=== PATIENT | female | born 1995 | race Hispanic/Latino ===

== ENCOUNTER 2018-11-30 11:18 | Inpatient (IN) | payer OTHER ==
[~2018-11-30] VITALS: Ht 152.4 cm; Wt 55.0 kg
[2018-11-30 11:54] LABS: HEMATOCRIT 41.1 % (36.0-47.0); MEAN CORPUSCULAR HEMOGLOBIN 30.7 pg (27.0-33.0); MEAN CORPUSCULAR HGB CONC 34.1 g/dl (32.0-36.5); MEAN CORPUSCULAR VOLUME 90.1 fl (80.0-96.0); PLATELET COUNT, AUTOMATED 315 10^3/uL (150-450); RED BLOOD COUNT 4.56 10^6/uL (4.00-5.40); WHITE BLOOD COUNT 10.3 10^3/uL (4.0-10.0)
[2018-11-30 12:25] LABS: HCG, SERUM QUALITATIVE NEGATIVE (NEGATIVE)
[2018-11-30 12:29] LABS: ACETAMINOPHEN LEVEL < 2.0 UG/ML (10.0-30.0); ALT/SGPT 25 U/L (12-78); AMPHETAMINES LEVEL URINE NEGATIVE (NEGATIVE); BARBITURATES URINE NEGATIVE (NEGATIVE); BENZODIAZEPINES URINE NEGATIVE (NEGATIVE); BILIRUBIN,DIRECT 0.2 MG/DL (0.0-0.2); BILIRUBIN,TOTAL 0.9 MG/DL (0.2-1.0); BLOOD UREA NITROGEN 16 MG/DL (7-18); CALCIUM LEVEL 8.3 MG/DL (8.5-10.1); CANNABINOIDS URINE NEGATIVE (NEGATIVE); CARBON DIOXIDE LEVEL 29 MEQ/L (21-32); CHLORIDE LEVEL 107 MEQ/L (98-107); COCAINE METABOLITE URINE NEGATIVE (NEGATIVE); CREATININE FOR GFR 0.72 MG/DL (0.55-1.30); ETHYL ALCOHOL (ETHANOL) 0.004 % (0.000-0.010); GLOMERULAR FILTRATION RATE > 60.0 (>60); GLUCOSE, FASTING 94 MG/DL (70-100); METHADONE URINE NEGATIVE (NEGATIVE); OPIATES URINE NEGATIVE (NEGATIVE); PHENCYCLIDINE URINE NEGATIVE (NEGATIVE); POTASSIUM SERUM 3.7 MEQ/L (3.5-5.1); SALICYLATE LEVEL < 1.7 MG/DL (5.0-30.0); SODIUM LEVEL 142 MEQ/L (136-145); THYROID STIMULATING HORMONE 0.425 uIU/ML (0.358-3.740); TOTAL PROTEIN 7.3 GM/DL (6.4-8.2)
[2018-11-30] MEDS ORDERED: NEXP1IMP SC (12:35)
[2018-11-30] MEDS ORDERED: traZODone 50 MG TAB PO PRN (13:45)
[2018-11-30] MEDS ORDERED: MAALOX 30 ML SUSP *UDC PO PRN (13:45)
[2018-11-30] MEDS ORDERED: ACETAMINOPHEN TAB 650MG DOSE (2X325MG) PO PRN (13:45)
[2018-11-30] MEDS ORDERED: MOM 30ML SUSPENSION UDC PO PRN (13:45)
[2018-11-30 15:48] VITALS: BP 114/69
[2018-12-01 06:15] VITALS: BP 93/53
--- NOTE | 2018-12-01 15:04 | MHHPEPDOC ---
General Date Of Admission: Dec 01, 2018 Legal Status: 9.39 Chief Complaint Overwhelmed, suicidal ideation History of Present Illness HISTORY OF THE PRESENT ILLNESS: Patient is a 23 -year-old , female, who according to Ed report: "Pt presented to ED via Escort after a walkin apt to [facility]. Pt reported +SI gesture this morning by cutting wrist. Pt stated, after writing good bye letters to her family members last monday, made another +SI gestuure by cutting the other wrist. Pt minimizes her behavior. "I g et overwhelmed" ; I miss my mom, relationship issues, work, trying to get promoted, etc., "I didn't want to deal with anything anymore". "sometimes, I get overwhelmed so fast, i go to my car and cry". Pt denies hx of cutting, reported "just started Monday". "I think noone cares if I'm not here". "Yes, they will be sad, but will get over it". "I am leaving them my money so they will be taken care, of". Pt stated +SI when she does not feel in control of everything. 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 Pt reported 1 previous SI attempt by overdose while stationed in [place]. Pt stated +SI attempts in past but never told anyone., would not elaborate". Psychiatric Review of Systems Depression (2 or more weeks): depressed mood (on and off), insomnia/hypersomnia (she wakes up at 2 am and she can't go back to sleep.), feelings of excess/guilt, feelings of worthlesness (she says that there's some things she doesn't like about herself, for example she would like to get braces but she hasn't been able to because she is in the [employer]. she says she had surgery for lazy eye but she still feels that people look at her because of it), difficulty concentrating (When she reads), appetite changes (she eats when she can, because sometimes she doesn't have the time. she says when she is depressed, she eats less and when she is anxious, she eats more), suicidal thoughts (but she says she is not suicidal today) [place] (4 or more days of): denies Psychosis: denies PTSD: denies Anxiety: stressor related anxiety (romantic relationships thag go wrong or sour trigger her anxiety), panic attacks Anxiety/ 6 months or more of: difficulty concentrating (when she reads), irritability (whe she doesn't get enough sleep), muscle tension Past Psychiatric History Previous Psychiatric Diagnosis: Anxiety and depression Previous Psychiatric Admissions: Denies. Suicide Attempts: When she was stationed in [place] she took 3 pills to go to sleep and even when she explained the Doctor that she was not trying to kill herself, she was just trying to go to sleep, they didn't believe her and they had her under observation, she was hooked to a Holter monitor, she had IV fluids for one night Psychiatric Follow-up: [facility] Psychiatric medications: Denies Past Medical History Medical Problems Denies Head Injury: No Seizures: No Hospitalizations: Yes Surgeries: Yes (eye surgery) Family Medical/Psychiatric HX Medical Problems Her father is hypertensive, has heart problems and is diabetic. Her mother has RA. Her paternal grandmother had diabetes and her paternal grandfather had a heart attack Psychiatric Disorders: No Addiction: No Suicide Attemps/Completions: No Addiction History alcohol (for her Birthday) Social History Childhood: she was born and raised in [place]. she grew up with his parents and then, her mother came to live to the [facility], she stayed with her father. then, she came to the [facility], her parents were , she didn't know how to speak [place], she was bullied in school. her mother became and she took care of her mother's child (her half siblings). She joined the [employer], mostly to run away from home because she was overwhelmed doing her homework, helping with house chores, had to take care of the baby. She has two other brothers. The oldest one is from a different father and so is the youngest one. The one that is 20 years old is the full blooded brother that she thinks was spoled by her mother. Abuse/Trauma: Denies Current Living Situation: Lives on post Education: HS diploma, wants to continue her education Employment: Active duty soldier Social Support: Her boyfriend and one friend in the [employer] Legal: Denies Marital: single, no children Mental Status Examination General Appearance: well groomed, hospital scubs/clothing Build: average Demeanor: average Eye Contact: average Activity: average Behavior: cooperative Speech: clear, spontaneous, reg/rate,rhythm,volume Mood: euthymic Affect: full, appropriate, congruent Thought Process: logical/linear Thought Content (Delusions): none reported Thought Content (Other): none reported Thought Content (Aggressive): none reported Perception (Hallucinations): none reported Perception (Other): none reported Cognition (Impairment of): none reported Cognition(Intelligence Est.): average Oriented: Awake, Alert, Oriented times three Insight: fair Judgment: Fair Psychosis: Denies Diagnoses 1. Adjustment disorder with depressed/anxious mood 2. MAURA Assessment Patient is pleasant and cooperative, she seems to be stable at this time. she has felt overwhelmed and she had problems with her boyfriend, her father was sick in [place], she misses her family. She has had trouble eating but it is because usually she doesn't have the time to eat because she is too busy, she says she has difficulty concentrating but it is limited to reading. She doesn't wnt to take any medications and I don't think she is depressed, I think she has an Adjustment Disorder Initial Treatment Plan 1. Patient was admitted on a [9.39] status. 2. Complete history was obtained. 3. With patients permission, family will be contacted and database will be expanded. 4. Patients medication regimen will be reviewed and changed accordingly. 5. Patient will be provided with protected environment. 6. Patient will be treated with individual, group, and milieu therapies. 7. Patient will receive supportive psych-education. 8. Discharge planning will commence immediately. 9. Outpatient follow-up treatment will be strongly recommended. 10. The initial treatment plan will focus initially on: * Depression. * Risk for suicide. * Substance abuse. ESTIMATED LENGTH OF STAY: 5-7 DAYS. TIME SPENT COUNSELING AND COORDINATING INITIAL CARE: 60 minutes. Vital Signs Vital Signs Date Time Temp Pulse Resp B/P (MAP) Pulse Ox O2 Delivery O2 Flow Rate FiO2 12/01/18 06:15 99.1 65 12 93/53 (66) 11/30/18 15:48 98 11/30/18 11:24 Room Air Medications Scheduled Etonogestrel (Nexplanon) 68 Mg Imp, 68 MG SC ASDIRECTED, (Reported) Allergies Coded Allergies: No Known Allergies (Unverified , 11/30/18) ROLLY TERRAZAS MD Dec 01, 2018 14:54
[2018-12-01 18:13] VITALS: BP 112/66
[2018-12-02 06:11] VITALS: BP 97/57
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
[2018-12-02 18:14] VITALS: BP 158/65
[2018-12-03 06:00] VITALS: BP 102/58
--- NOTE | 2018-12-03 13:26 | HPE ---
DATE OF ADMISSION: 11/30/2018 HISTORY OF PRESENT ILLNESS: Please refer to psychiatric history and evaluation for further details on this admission. This examination and history is intended for medical issues, which may need treatment, followup, or consult on this 23-year-old female. ALLERGIES: No known allergies. PRIMARY CARE PROVIDER: [facility]. 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 Ethyl alcohol (EtOH) on a special occasion, like a birthday. Smokes none. Recreational drug use none. PAST MEDICAL HISTORY: History of anxiety and depression. PAST SURGICAL HISTORY: Bilateral correction of lazy eye. MEDICATIONS: None. FAMILY HISTORY: Noncontributory. LABORATORY STUDIES: WBC 10.3, hemoglobin 14, hematocrit 41.1, platelets 315. Sodium 142, potassium 3.7, chloride 107, CO2 21, BUN is 16, creatinine 0.72. Urine for toxicology was negative. FAMILY HISTORY: Noncontributory. Ten systems review was done. Was essentially unremarkable. PHYSICAL EXAMINATION: A 23-year-old cooperative female, in no acute distress. Height 60 inches, weight 55 kg, body mass index (BMI) 23.7. The patient is alert and oriented times three. Pupils are equal and react to light. Extraocular movements (EOMs) intact. Cornea and sclerae clear. Conjunctivae normal. No facial asymmetry. Pharynx, tongue, gums pink and moist. Tongue is midline. NECK: Is supple without lymphadenopathy. No thyromegaly. No goiter. CHEST: Clear to auscultation without wheeze or retraction. HEART: Is regular. ABDOMEN: Is benign. Bowel sounds positive. GENITOURINARY ()/RECTAL: Not done. EXTREMITIES: Show equal strength, full range of motion. No cyanosis, clubbing, or edema. Peripheral pulses equal and palpable bilaterally. SKIN: Is warm and dry. IMPRESSION AND PLAN: 1. Psychiatric plan per psychiatry. 2. No acute medical issues.
--- NOTE | 2018-12-03 16:51 | MHIPNPDOC ---
[facility] Progress Note Progress Note DATE OF SERVICE: 12/03/18 HISTORY: Patient is a 23 -year-old , female, who according to Ed report: "Pt presented to ED via Escort after a walkin apt to [facility] . Pt reported +SI gesture this morning by cutting wrist. Pt stated, after writing good bye letters to her family members last monday, made another +SI gestuure by cutting the other wrist. Pt minimizes her behavior. "I get overwhelmed" ; I miss my mom, relationship issues, work, trying to get promoted, etc., "I didn't want to deal with anything anymore". "sometimes, I get overwhelmed so fast, i go to my car and cry". Pt denies hx of cutting, reported "just started Monday". "I think noone cares if I'm not here". "Yes, they will be sad, but will get over it". "I am leaving them my money so they will be taken care, of". Pt stated +SI when she does not feel in control of everything. 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 Pt reported 1 previous SI attempt by overdose while stationed in [place]. Pt stated +SI attempts in past but never told anyone., would not elaborate". VITAL SIGNS: See below. NEW TEST RESULTS: See below CURRENT MEDICATIONS: See below. MENTAL STATUS EXAMINATION: General Appearance: well groomed, hospital scubs/clothing Build: average Demeanor: average Eye Contact: average Activity: average Behavior: cooperative Speech: clear, spontaneous, reg/rate,rhythm,volume Mood: euthymic, happy today Affect: full, appropriate, congruent Thought Process: logical/linear Thought Content (Delusions): none reported Thought Content (Other): none reported Thought Content (Aggressive): none reported Perception (Hallucinations): none reported Perception (Other): none reported Cognition (Impairment of): none reported Cognition(Intelligence Est.): average Oriented: Awake, Alert, Oriented times three Insight: improving Judgment: improving Psychosis: Denies Diagnoses 1. Adjustment disorder with depressed/anxious mood 2. MAURA ASSESSMENT: She talks about the way she approaches her relationships, her friendships, her family life. We had a conversation about the way she has sabotaged her relationships. She says last night she took Trazodone for sleep but this morning she has felt very tired. she is ready to leave, she will be leaving tomorrow. MANAGEMENT PLAN: Discharge tomorrow. TIME SPENT: 15 minutes. Vital Signs Vital Signs Date Time Temp Pulse Resp B/P (MAP) Pulse Ox O2 Delivery O2 Flow Rate FiO2 12/03/18 06:00 98.2 57 16 102/58 (73) 98 11/30/18 11:24 Room Air Current Medications Current Medications Acetaminophen (Tylenol Tab) 650 mg Q6HP PRN PO HEADACHE or DISCOMFORT; Start 11/30/18 at 13:45 Al Hydrox/Mg Hydrox/Simethicone (Mylanta) 30 ml Q4HP PRN PO HEARTBURN/INDIGESTION; Start 11/30/18 at 13:45 Home Med (Med Rec Complete!) ASDIRECTED XX ; Start 11/30/18 at 12:45; Stop 11/30/18 at 12:45; Status DC Magnesium Hydroxide (Milk Of Magnesia) 30 ml DAILYPRN PRN PO CONSTIPATION; Start 11/30/18 at 13:45 Trazodone HCl (Desyrel) 50 mg QHSP PRN PO INSOMNIA Last administered on 12/02/18at 21:02; Start 11/30/18 at 13:45 Allergies Coded Allergies: No Known Allergies (Unverified , 11/30/18) ROLLY TERRAZAS MD Dec 03, 2018 13:00
[2018-12-03 18:00] VITALS: BP 118/56
[2018-12-04 06:34] VITALS: BP 101/62
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
== END 2018-12-04 13:56 | disposition home or self-care (01) | DRG 882 ==
LOC: M ED 11:18 → M ED INP 13:34 → M PSY 15:40
PROVIDERS: ADMIT Psychiatry & Neurology Psychiatry; ATTEND Psychiatry & Neurology Psychiatry
DX: F43.23 Adjustment disorder with mixed anxiety and depressed mood (principal); F41.1 Generalized anxiety disorder; Z62.811 Personal history of psychological abuse in childhood

== ENCOUNTER 2019-01-23 12:09 | Inpatient (IN) | payer OTHER ==
[~2019-01-23] VITALS: Ht 152.4 cm; Wt 56.6 kg
[~2019-01-23 12:09] MED LIST: NEXP1IMP SC
[2019-01-23 12:39] LABS: BASO # 0.1 10^3/uL (0.0-0.2); BASO % 0.5 % (0.0-1.0); EOS # 0.3 10^3/uL (0.0-0.50); EOS % 2.7 % (0.0-3.0); HEMATOCRIT 40.5 % (36.0-47.0); HEMOGLOBIN 13.9 g/dl (12.0-15.5); LYMPH # 1.8 10^3/uL (1.5-6.5); MEAN CORPUSCULAR HEMOGLOBIN 30.7 pg (27.0-33.0); MEAN CORPUSCULAR HGB CONC 34.3 g/dl (32.0-36.5); MEAN CORPUSCULAR VOLUME 89.4 fl (80.0-96.0); MONO # 0.4 10^3/uL (0.0-0.8); MONO % 4.2 % (0.0-5.0); NEUTROPHILS # 6.9 10^3/uL (1.8-7.7); NEUTROPHILS % 73.3 % (36.0-66.0); PLATELET COUNT, AUTOMATED 312 10^3/uL (150-450); RED BLOOD COUNT 4.53 10^6/uL (4.00-5.40); WHITE BLOOD COUNT 9.4 10^3/uL (4.0-10.0)
[2019-01-23] MEDS ORDERED: NS 1,000 ML IV ONE ×2 (12:45→15:00)
[2019-01-23 13:02] LABS: HCG, SERUM QUALITATIVE NEGATIVE (NEGATIVE)
[2019-01-23 13:31] LABS: ACETAMINOPHEN LEVEL < 2.0 UG/ML (10.0-30.0); ALBUMIN 4.2 GM/DL (3.2-5.2); ALT/SGPT 35 U/L (12-78); BILIRUBIN,DIRECT 0.2 MG/DL (0.0-0.2); BILIRUBIN,TOTAL 1.2 MG/DL (0.2-1.0); BLOOD UREA NITROGEN 12 MG/DL (7-18); CALCIUM LEVEL 8.8 MG/DL (8.5-10.1); CARBON DIOXIDE LEVEL 25 MEQ/L (21-32); CHLORIDE LEVEL 105 MEQ/L (98-107); CPK CREATINE PHOSPHOKINASE 87 U/L (26-192); CREATININE FOR GFR 0.82 MG/DL (0.55-1.30); ETHYL ALCOHOL (ETHANOL) < 0.003 % (0.000-0.010); GLOMERULAR FILTRATION RATE > 60.0 (>60); GLUCOSE, FASTING 92 MG/DL (70-100); POTASSIUM SERUM 3.9 MEQ/L (3.5-5.1); SALICYLATE LEVEL < 1.7 MG/DL (5.0-30.0); SODIUM LEVEL 140 MEQ/L (136-145); TOTAL PROTEIN 7.4 GM/DL (6.4-8.2)
--- NOTE | 2019-01-23 13:33 | REP ---
Portable chest x-ray: Single view. History: Drug overdose. Findings: EKG monitoring electrodes overlie the chest. The lungs are well inflated and clear. Pleural angles are sharp. Heart size is normal. Pulmonary vasculature is not increased. No bony abnormality is seen. Impression: Negative portable chest x-ray. Electronically Signed by Reji Rose MD 01/23/2019 01:25 P
[2019-01-23 15:16] LABS: AMPHETAMINES LEVEL URINE NEGATIVE (NEGATIVE); BARBITURATES URINE NEGATIVE (NEGATIVE); BENZODIAZEPINES URINE NEGATIVE (NEGATIVE); CANNABINOIDS URINE NEGATIVE (NEGATIVE); COCAINE METABOLITE URINE NEGATIVE (NEGATIVE); METHADONE URINE NEGATIVE (NEGATIVE); OPIATES URINE NEGATIVE (NEGATIVE); PHENCYCLIDINE URINE NEGATIVE (NEGATIVE)
[2019-01-23] MEDS ORDERED: MOM 30ML SUSPENSION UDC PO PRN (20:30)
[2019-01-23] MEDS ORDERED: MAALOX 30 ML SUSP *UDC PO PRN (20:30)
[2019-01-23] MEDS ORDERED: traZODone 50 MG TAB PO PRN (20:30)
[2019-01-23 21:18] VITALS: BP 120/76
--- NOTE | 2019-01-23 22:18 | ECGEPIP ---
Stationary ECG Study [facility] - ED Test Date: 2019-01-23 Pat Name: ZAC POLANCO Department: Room: - Gender: F Sign Painter: : 1995 Requested By: ROSMERY Chinchilla Order Number: [id number] Reading MD: Sergio Leger Measurements Intervals [place] Rate: 70 P: 24 RI: 163 QRS: 79 QRSD: 83 T: 57 QT: 430 QTc: 464 Interpretive Statements SINUS RHYTHM BENIGN EARLY REPOLARIZATION NO PRIORS FOR COMPARISON Electronically Signed On 01-23-2019 22:18:13 EDT by Sergio Leger
[2019-01-24 07:08] VITALS: BP 100/49
[2019-01-24] MEDS ORDERED: SERT-141 PO (09:09)
--- NOTE | 2019-01-24 12:40 | MHHPEPDOC ---
General Date Of Admission: Jan 23, 2019 Legal Status: 9.39 Chief Complaint "I didn't have anything else to do." History of Present Illness HISTORY OF THE PRESENT ILLNESS: Patient is a 23 -year-old , AD, female, with a psych history of depression and SA x2 last 12/01/18 and admitted [facility] who was brought to ED by Zoe after she took 8 pills of benadryl 25mg in a few days she stated in the ED b/c she was fighting with her boyfriend and didn't have anything else to do. She denied in the ED that she was intending on kill herself and didn't think it was a "big deal" stating "the blows everything out of proportion." Stated she and her boyfriend fight frequent but told ED that is wasn't different from other couples. She denied SI/HI, hallucinations, delusions in the ED. She was greatly minimizing systems and actions. Psychiatric Review of Systems Depression (2 or more weeks): depressed mood, difficulty concentrating, suicidal thoughts [place] (4 or more days of): denies Psychosis: denies PTSD: denies Anxiety: situational anxiety, stressor related anxiety Anxiety/ 6 months or more of: restlessness, keyed up, difficulty concentrating, irritability, personality cluster A,BC (b) Past Psychiatric History Previous Psychiatric Diagnosis: Anxiety and depression Previous Psychiatric Admissions: [facility] 12/01/18 for SA s/p cutting wrists Suicide Attempts: When she was stationed in [place] she took 3 pills to go to sleep and even when she explained the Doctor that she was not trying to kill herself, she was just trying to go to sleep, they didn't believe her and they had her under observation, hooked to a Holter monitor, given IV fluids for one night. 12/01/18 cut wrists Psychiatric Follow-up: [facility] Psychiatric medications: Denies Past Medical History Medical Problems denies Head Injury: No Seizures: No Hospitalizations: No Surgeries: Yes (eye surgery) Family Medical/Psychiatric HX Medical Problems noncontributory Psychiatric Disorders: No Addiction: No Suicide Attemps/Completions: No Addiction History alcohol (occasional) Social History Childhood: she was [place]. she grew up with his parents and then, her mother came to live to the [facility], she stayed with her father. then, she came to the [facility], her parents were , she didn't know how to speak Indian, she was bullied in school. her mother became and she took care of her mother's child (her half siblings). She joined the [employer], mostly to run away from home because she was overwhelmed doing her homework, helping with house chores, had to take care of the baby. She has two other brothers. The oldest one is from a different father and so is the youngest one. The one that is 20 years old is the full blooded brother that she thinks was spoiled by her mother. Abuse/Trauma: Denies Current Living Situation: Lives on post Education: HS diploma, wants to continue her education Employment: Active duty soldier Social Support: Her boyfriend and one friend in the [employer] Legal: Denies Marital: single, no children Mental Status Examination General Appearance: well groomed, appears stated age, hospital scubs/clothing Build: average Demeanor: average Eye Contact: average Activity: average, anxious Behavior: uncooperative (makes a lot of excuses) Speech: clear, spontaneous, reg/rate,rhythm,volume Mood: anxious Mood "I'm fine" Affect: full, congruent, anxious Thought Process: logical/linear, intact, other (makes excusses, manipulative, minimizes actions) Thought Content (Delusions): none reported, denies SI, HI, AVH Thought Content (Other): none reported, appropriate Thought Content (Aggressive): none reported Perception (Hallucinations): none reported Perception (Other): none reported Cognition (Impairment of): none reported Cognition(Intelligence Est.): average Oriented: Awake, Alert, Oriented times three Insight: poor Judgment: Poor Psychosis: Denies Diagnoses Depression Unspecified R/O Adjustment disorder with depressed/anxious mood MAURA R/O borderline Personality D/O A-FIB/CHADSVASC A-FIB History Current/History of A-Fib/PAF?: No Current Oral Anticoagulant The: No Treatment Treatment ordered: NONE Reason Anticoagulant not given: Not indicated/[id number] Assessment Pt seen and states she here b/c she couldn't sleep Monday night so she took 3pills of benadryl at 6pm then woke up at 12am and took 2pills again, then 3pills again at 10am, and was called by her therapist b/c she missed her appt and told her therapist why and therapist had her brought to ED for evaluation. States she wasn't trying to kill herself and isn't a big deal. States she has depression and was started on zoloft but it causes fatigue if taken during the day and insomnia at night which has been affecting her ability to sleep well at night. Agreeable to d/c zoloft and starting lexapro as can be less sedation, risks/benefits discussed. Pt asking to leave multiple times as doesn't think she needs to be here and believes she can manipulate her Zoe for herself to be d/c tomorrow. Makes several excuses why she doesn't need to be here and what she did wasn't "a big deal." Pt told that she will most likely not be discharged tomorrow as [facility] closed over the weekend and she did take a lot of benadryl over a short time. Insight and judgement appear poor. Initial Treatment Plan 1. Patient was admitted on a 9 status. 2. Complete history was obtained. 3. With patients permission, family will be contacted and database will be expanded. 4. Patients medication regimen will be reviewed and changed accordingly. 5. Patient will be provided with protected environment. 6. Patient will be treated with individual, group, and milieu therapies. 7. Patient will receive supportive psych-education. 8. Discharge planning will commence immediately. 9. Outpatient follow-up treatment will be strongly recommended. 10. The initial treatment plan will focus initially on: * Depression. * Risk for suicide. * Substance abuse. 11. d/c zoloft, start lexapro 10mg daily ESTIMATED LENGTH OF STAY: 3-5 DAYS. TIME SPENT COUNSELING AND COORDINATING INITIAL CARE: 60 minutes. Vital Signs Vital Signs Date Time Temp Pulse Resp B/P (MAP) Pulse Ox O2 Delivery O2 Flow Rate FiO2 01/24/19 07:08 98.5 55 14 100/49 (66) 01/23/19 21:18 99 01/23/19 12:11 Room Air Laboratory Data 24H Labs Laboratory Tests 2 01/23/19 12:26: Immature Granulocyte % (Auto) 0.3, White Blood Count 9.4, Red Blood Count 4.53, Hemoglobin 13.9, Hematocrit 40.5, Mean Corpuscular Volume 89.4, Mean Corpuscular Hemoglobin 30.7, Mean Corpuscular Hemoglobin Concent 34.3, Red Cell Distribution Width 11.9, Platelet Count 312, Neutrophils (%) (Auto) 73.3H, Lymphocytes (%) (Auto) 19.0L, Monocytes (%) (Auto) 4.2, Eosinophils (%) (Auto) 2.7, Basophils (%) (Auto) 0.5, Neutrophils # (Auto) 6.9, Lymphocytes # (Auto) 1.8, Monocytes # (Auto) 0.4, Eosinophils # (Auto) 0.3, Basophils # (Auto) 0.1, Nucleated Red Blood Cells % (auto) 0.0, Anion Gap 10, Glomerular Filtration Rate > 60.0, Calcium Level 8.8, Aspartate Amino Transf (AST/SGOT) 27, Alanine Aminotransferase (ALT/SGPT) 35, Alkaline Phosphatase 112, Total Bilirubin 1.2H, Direct Bilirubin 0.2, Total Creatine Kinase 87, Total Protein 7.4, Albumin 4.2, Albumin/Globulin Ratio 1.31, Thyroid Stimulating Hormone (TSH) 0.570, Human Chorionic Gonadotropin, Qual NEGATIVE, Salicylates Level < 1.7L, Urine Amphetamines Screen NEGATIVE, Urine Benzodiazepines Screen NEGATIVE, Urine Opiates Screen NEGATIVE, Urine Methadone Screen NEGATIVE, Acetaminophen Level < 2.0L, Urine Barbiturates Screen NEGATIVE, Urine Phencyclidine Screen NEGATIVE, Urine Cocaine Metabolite Screen NEGATIVE, Urine Cannabinoids Screen NEGATIVE, Ethyl Alcohol Level < 0.003 CBC/BMP Laboratory Tests 01/23/19 12:26 Red Blood Count 4.53, Mean Corpuscular Volume 89.4, Mean Corpuscular Hemoglobin 30.7, Mean Corpuscular Hemoglobin Concent 34.3, Red Cell Distribution Width 11.9, Neutrophils (%) (Auto) 73.3 H, Lymphocytes (%) (Auto) 19.0 L, Monocytes (%) (Auto) 4.2, Eosinophils (%) (Auto) 2.7, Basophils (%) (Auto) 0.5, Neutrophils # (Auto) 6.9, Lymphocytes # (Auto) 1.8, Monocytes # (Auto) 0.4, Eosinophils # (Auto) 0.3, Basophils # (Auto) 0.1 Medications Scheduled Etonogestrel (Nexplanon) 68 Mg Imp, 68 MG SC ASDIRECTED for ., (Reported) Sertraline Hcl (Sertraline HCl) 50 Mg Tablet, 50 MG PO DAILY for ., (Reported) Allergies Coded Allergies: No Known Allergies (Unverified , 11/30/18) MADELINE FINNEY DO Jan 24, 2019 12:40
[2019-01-24] MEDS ORDERED: ESCITALOPRAM OXALATE 10 MG TAB (LEXAPRO) PO ONE (13:00)
--- NOTE | 2019-01-24 13:29 | HPEPDOC ---
[facility] Medical History & Physical Date of Admission Jan 24, 2019 History and Physical CHIEF COMPLAINT: [Drug overdose] HISTORY OF PRESENT ILLNESS: [23-year-old female with significant psychiatric history but no medical history who presented any of taking a Benadryl within 24- hour period after a fight with her boyfriend. Patient was bored and denied of any suicide ideation. Patient was admitted to inpatient mental health for further evaluation and treatment. Patient denies of any complaints at this time. Again patient states that she took a Benadryl within a 24-hour period and had no intention of suicide.] PAST MEDICAL HISTORY: None PAST SURGICAL HISTORY: None SOCIAL HISTORY: From [facility], denies of smoking, denies drinking, denies drug abuse FAMILY HISTORY: Father with history of diabetes and coronary artery disease, mom with history of arthritis ALLERGIES: Please see below. REVIEW OF SYSTEMS: Template review systems negative than those described in [facility] MEDICATIONS: Please see below. PHYSICAL EXAMINATION: PHYSICAL EXAMINATION: VITAL SIGNS: Please see below GENERAL APPEARANCE: Resting comfortably HEENT: Normocephalic, PERRLA, Mucous moist, CARDIOVASCULAR: S1,S2, pulse present, regularly, regular, LUNGS: Equal air entry b/l, no wheezes or crackle ABDOMEN: Soft, BS present, no tenderness, no guarding GENITOURINARY: No [place] EXTREMITIES: B/L no edema, capillary refill present SKIN: Warm, No fever NEUROLOGICAL: Cranial nerves grossly intact PSYCHIATRIC: Normal mood and affect for current situation. LABORATORY DATA: See below. IMAGING: [Checks x-ray: Negative portable chest] MICROBIOLOGY: Please see below. Assessment and plan: 23-year-old female psychiatric history but no medical history who presented with complaint of taking a Benadryl within 24 hours and admitted to the inpatient mental health for overdose. Overdose -Clear mentation and without drowsiness -Lab and checks x-ray reviewed -Defer further management to the primary psychiatric team Medical team will sign off at this time Vital Signs Vital Signs Date Time Temp Pulse Resp B/P (MAP) Pulse Ox O2 Delivery O2 Flow Rate FiO2 01/24/19 07:08 98.5 55 14 100/49 (66) 01/23/19 21:18 99 01/23/19 12:11 Room Air Home Medications Scheduled Etonogestrel (Nexplanon) 68 Mg Imp, 68 MG SC ASDIRECTED for . Sertraline Hcl (Sertraline HCl) 50 Mg Tablet, 50 MG PO DAILY for . Allergies Coded Allergies: No Known Allergies (Unverified , 11/30/18) GEORGINA HOLLIS MD Jan 24, 2019 13:29
[2019-01-24 18:01] VITALS: BP 107/56
[2019-01-24] MEDS: ACETAMINOPHEN TAB 650MG DOSE (2X325MG) PO PRN (19:55)
[2019-01-25 06:19] VITALS: BP 114/58
[2019-01-25] MEDS: ESCITALOPRAM OXALATE 10 MG TAB (LEXAPRO) PO SCH (09:00)
[2019-01-25] MEDS: ACETAMINOPHEN TAB 650MG DOSE (2X325MG) PO PRN ×2 (09:06→15:15)
--- NOTE | 2019-01-25 10:29 | MHIPNPDOC ---
[facility] Progress Note Progress Note DATE OF SERVICE: 01/25/19 HISTORY: Patient is a 23 -year-old , AD, female, with a psych history of depression and SA x2 last 12/01/18 and admitted [facility] who was brought to ED by Zoe after she took 8 pills of benadryl 25mg in a few days she stated in the ED b/c she was fighting with her boyfriend and didn't have anything else to do. She denied in the ED that she was intending on kill herself and didn't think it was a "big deal" stating "the [employer] blows everything out of proportion." Stated she and her boyfriend fight frequent but told ED that is wasn't different from other couples. She denied SI/HI, hallucinations, delusions in the ED. She was greatly minimizing systems and actions. VITAL SIGNS: See below. NEW TEST RESULTS: See below. CURRENT MEDICATIONS: See below. MENTAL STATUS EXAMINATION: General Appearance: well groomed, appears stated age, hospital scrubs/clothing Build: average Demeanor: average Eye Contact: average Activity: average, less anxious Behavior: cooperative Speech: clear, spontaneous, reg/rate,rhythm,volume Mood: anxious Mood "ok" Affect: full, congruent, fatigued Thought Process: logical/linear, intact, other (makes excuses, manipulative, minimizes actions) Thought Content (Delusions): none reported, denies SI, HI, AVH Thought Content (Other): none reported, appropriate Thought Content (Aggressive): none reported Perception (Hallucinations): none reported Perception (Other): none reported Cognition (Impairment of): none reported Cognition(Intelligence Est.): average Oriented: Awake, Alert, Oriented times three Insight: poor-fair Judgment: Poor-fair Psychosis: Denies DIAGNOSES: Depression Unspecified R/O Adjustment disorder with depressed/anxious mood MAURA R/O borderline Personality D/O ASSESSMENT:Pt seen and states she has a mild headache and stomach ache after taken lexapro. Reassured it should improve over time as she tolerates it better and encouraged to take tylenol prn head which she has been doing and to take med with food to improve stomach upset. Encouraged to attend groups as part of her treatment. Over luevano states she ok and denies SI/HI, hallucinations, delusions. Insight and judgement appear poor to fair. MANAGEMENT PLAN: continue plan Medications: lexapro 10mg daily TIME SPENT: 30 minutes. Vital Signs Vital Signs Date Time Temp Pulse Resp B/P (MAP) Pulse Ox O2 Delivery O2 Flow Rate FiO2 01/25/19 06:19 99.1 60 18 114/58 (76) 01/23/19 21:18 99 01/23/19 12:11 Room Air Current Medications Current Medications Acetaminophen (Tylenol Tab) 650 mg Q6HP PRN PO HEADACHE or DISCOMFORT Last administered on 01/25/19at 09:06; Start 01/23/19 at 20:30 Al Hydrox/Mg Hydrox/Simethicone (Mylanta) 30 ml Q4HP PRN PO HEARTBURN/INDIGESTION Last administered on 01/24/19at 18:27; Start 01/23/19 at 20:30 Escitalopram Oxalate (Lexapro) 10 mg DAILY PO ; Start 01/25/19 at 09:00 Home Med (Med Rec Complete!) ASDIRECTED XX ; Start 01/24/19 at 09:15; Stop 01/24/19 at 09:15; Status DC Magnesium Hydroxide (Milk Of Magnesia) 30 ml DAILYPRN PRN PO CONSTIPATION; Start 01/23/19 at 20:30 Trazodone HCl (Desyrel) 50 mg QHSP PRN PO INSOMNIA; Start 01/23/19 at 20:30 Allergies Coded Allergies: No Known Allergies (Unverified , 11/30/18) A-FIB/CHADSVASC A-FIB History Current/History of A-Fib/PAF?: No Current Oral Anticoagulant The: No Treatment Treatment ordered: NONE Reason Anticoagulant not given: Not indicated/[id number] MADELINE FINNEY DO Jan 25, 2019 09:30
[2019-01-25 18:08] VITALS: BP 112/63
[2019-01-26 06:28] VITALS: BP 98/51
[2019-01-26] MEDS: ESCITALOPRAM OXALATE 10 MG TAB (LEXAPRO) PO SCH (09:13)
[2019-01-26 18:20] VITALS: BP 126/68
[2019-01-26] MEDS: traZODone 100 MG TAB PO PRN (21:17)
[2019-01-27 06:55] VITALS: BP 93/50
[2019-01-27] MEDS: ESCITALOPRAM OXALATE 10 MG TAB (LEXAPRO) PO SCH (09:40)
[2019-01-27 18:34] VITALS: BP 100/50
[2019-01-27] MEDS: traZODone 100 MG TAB PO PRN (20:14)
[2019-01-28 06:48] VITALS: BP 90/50
[2019-01-28] MEDS ORDERED: TRAZ10TA PO (08:53)
[2019-01-28] MEDS ORDERED: ESCI10TA2 PO (08:53)
--- NOTE | 2019-01-28 08:53 | MHDSPDOC ---
[facility] Discharge Summary Discharge Summary DATE OF ADMISSION: Jan 23, 2019 at 8:27 pm DATE OF DISCHARGE: January 28, 2019 DISCHARGE DIAGNOSES: Depression Unspecified R/O Adjustment disorder with depressed/anxious mood MAURA R/O borderline Personality D/O REASON FOR ADMISSION: Patient is a 23 -year-old , AD, female, with a psych history of depression and SA x2 last 12/01/18 and admitted [facility] who was brought to ED by Zoe after she took 8 pills of benadryl 25mg in a few days she stated in the ED b/c she was fighting with her boyfriend and didn't have anything else to do. She denied in the ED that she was intending on kill herself and didn't think it was a "big deal" stating "the blows everyth ing out of proportion." Stated she and her boyfriend fight frequent but told ED that is wasn't different from other couples. She denied SI/HI, hallucinations, delusions in the ED. She was greatly minimizing systems and actions. CONSULTANTS INVOLVED: none TREATMENT AND PROGRESS ON THE UNIT : Pt was admitted to [facility], seen for psychiatric assessment and started on lexapro 5mg daily for mood and anxiety. She was provided trazodone 100mg qhs prn insomnia. Pt found her medications beneficial and tolerated them well. She attended groups daily during her stay. Her symptoms improved with treatment. On day of discharge she denied depression, anxiety, insomnia, SI/HI, hallucinations, delusions. She was discharged home [facility]oe meeting with follow-up at [facility]. She felt safe for discharge. DISCHARGE ASSESSMENT: Pt seen and states she feels good and is looking forward to going home today with her Zoe. States she tolerating her lexapro well, denies side effect of headache any longer, and feels it's beneficial. Is attending groups and finding beneficial. Denies depression, anxiety, insomnia, SI/HI, hallucinations, delusions. Insight and judgement appears good. States she feels safe to go home with her Zoe today. MENTAL STATUS EXAMINATION ON DISCHARGE: General Appearance: well groomed, appears stated age, hospital scrubs/clothing Build: average Demeanor: average Eye Contact: average Activity: average Behavior: cooperative Speech: clear, spontaneous, reg/rate,rhythm,volume Mood: euthymic, full Mood "good" Affect: full, congruent, euthymic Thought Process: logical/linear, intact Thought Content (Delusions): none reported, denies SI, HI, AVH Thought Content (Other): none reported, appropriate Thought Content (Aggressive): none reported Perception (Hallucinations): none reported Perception (Other): none reported Cognition (Impairment of): none reported Cognition(Intelligence Est.): average Oriented: Awake, Alert, Oriented times three Insight: good Judgment: good Psychosis: Denies MEDICATIONS ON DISCHARGE: lexapro 10mg daily trazodone 100mg qhs prn insomnia PLAN/FOLLOWUP ARRANGEMENTS: D/c home with [facility] with follow-up at [facility]. The amount of time spent in the coordination of care for this patient was approximately 30 minutes. Vital Signs/I&Os Vital Signs Date Time Temp Pulse Resp B/P (MAP) Pulse Ox O2 Delivery O2 Flow Rate FiO2 01/28/19 06:48 96.2 62 14 90/50 (63) 01/23/19 21:18 99 01/23/19 12:11 Room Air Medications Scheduled Etonogestrel (Nexplanon) 68 Mg Imp, 68 MG SC ASDIRECTED for ., (Reported) Sertraline Hcl (Sertraline HCl) 50 Mg Tablet, 50 MG PO DAILY for ., (Reported) Allergies Coded Allergies: No Known Allergies (Unverified , 11/30/18) MADELINE FINNEY DO Jan 28, 2019 8:53 am
[2019-01-28] MEDS: ESCITALOPRAM OXALATE 10 MG TAB (LEXAPRO) PO SCH (09:34)
--- NOTE | 2019-01-29 09:47 | MHIPN ---
DATE: 01/26/2019 The patient today states "I'm feeling good." She says she feels "excited," that her mother is coming from [place] to visit her. She says that she did not sleep last night, even though she tried the trazodone. MENTAL STATUS EXAMINATION: She is alert and oriented times three. Eye contact is fair. Psychomotor activity is normal. There is no formal thought disorder noted. Mood is "good." Affect is full range and appropriate. She is not psychotic, suicidal or homicidal. Concentration is fair. Memory intact. Insight and judgment is fair. DIAGNOSES: 1. Depression, unspecified. 2. Rule out adjustment disorder with depressed and anxious mood. 3. Generalized anxiety disorder. 4. Rule out borderline personality disorder. TREATMENT PLAN: At this point, we will continue to further evaluate this patient and monitor her for continued elevation and stabilization of her mood. Will monitor for continued resolution of suicidal ideation.
--- NOTE | 2019-01-29 10:13 | MHIPN ---
DATE: 01/27/2019 The patient today states, "I'm doing better." She says that she slept good last night and she denies suicidal ideation. MENTAL STATUS EXAMINATION: She is alert and oriented times three. Eye contact is fairly good. Verbally spontaneous. There is no formal thought disorder noted. Mood is "better." Affect is full range and appropriate. She is not psychotic or suicidal or homicidal. Concentration fair. Memory intact. Insight and judgment fair. DIAGNOSES: 1. Unspecified depressive disorder. 2. Rule out adjustment disorder with depressed and anxious mood. 3. Generalized anxiety disorder. 4. Rule out borderline personality disorder. TREATMENT PLAN: At this point, the patient will be further evaluated for further elevation and stabilization of her mood and further resolution of suicidal ideation.
== END 2019-01-28 11:55 | disposition home or self-care (01) | DRG 881 ==
LOC: EDBD 12:09 → M ED 12:09 → M ED INP 20:27 → M PSY 21:10
PROVIDERS: ADMIT Psychiatry & Neurology Psychiatry; ATTEND Psychiatry & Neurology Psychiatry
DX: F32.9 Major depressive disorder, single episode, unspecified (principal); F43.23 Adjustment disorder with mixed anxiety and depressed mood; F41.1 Generalized anxiety disorder; T45.0X1A Poisoning by antiallergic and antiemetic drugs, accidental (unintentional), initial encounter; F60.3 Borderline personality disorder; Y92.139 Unspecified place military base as the place of occurrence of the external cause; Z79.899 Other long term (current) drug therapy

== ENCOUNTER 2019-03-17 23:49 | Emergency (ER) | payer OTHER ==
[~2019-03-17] VITALS: Ht 152.4 cm; Wt 54.1 kg
[~2019-03-17 23:49] MED LIST changes: +ESCI10TA2 PO; +SERT-141 PO; +TRAZ10TA PO
[2019-03-18 01:57] LABS: HEMATOCRIT 41.4 % (36.0-47.0); HEMOGLOBIN 13.9 g/dl (12.0-15.5); MEAN CORPUSCULAR HEMOGLOBIN 30.6 pg (27.0-33.0); MEAN CORPUSCULAR HGB CONC 33.6 g/dl (32.0-36.5); MEAN CORPUSCULAR VOLUME 91.2 fl (80.0-96.0); PLATELET COUNT, AUTOMATED 302 10^3/uL (150-450); RED BLOOD COUNT 4.54 10^6/uL (4.00-5.40); WHITE BLOOD COUNT 12.8 10^3/uL (4.0-10.0)
[2019-03-18 02:12] LABS: HCG, SERUM QUALITATIVE NEGATIVE (NEGATIVE)
[2019-03-18 02:25] LABS: AMPHETAMINES LEVEL URINE NEGATIVE (NEGATIVE); BARBITURATES URINE NEGATIVE (NEGATIVE); BENZODIAZEPINES URINE NEGATIVE (NEGATIVE); CANNABINOIDS URINE NEGATIVE (NEGATIVE); COCAINE METABOLITE URINE NEGATIVE (NEGATIVE); METHADONE URINE NEGATIVE (NEGATIVE); OPIATES URINE NEGATIVE (NEGATIVE); PHENCYCLIDINE URINE NEGATIVE (NEGATIVE)
[2019-03-18 02:30] LABS: ACETAMINOPHEN LEVEL < 2.0 UG/ML (10.0-30.0); ALBUMIN 4.1 GM/DL (3.2-5.2); ALT/SGPT 24 U/L (12-78); BILIRUBIN,DIRECT 0.1 MG/DL (0.0-0.2); BILIRUBIN,TOTAL 0.4 MG/DL (0.2-1.0); BLOOD UREA NITROGEN 9 MG/DL (7-18); CARBON DIOXIDE LEVEL 25 MEQ/L (21-32); CHLORIDE LEVEL 108 MEQ/L (98-107); CREATININE FOR GFR 0.71 MG/DL (0.55-1.30); ETHYL ALCOHOL (ETHANOL) < 0.003 % (0.000-0.010); GLOMERULAR FILTRATION RATE > 60.0 (>60); GLUCOSE, FASTING 114 MG/DL (70-100); POTASSIUM SERUM 3.8 MEQ/L (3.5-5.1); SALICYLATE LEVEL < 1.7 MG/DL (5.0-30.0); SODIUM LEVEL 140 MEQ/L (136-145); TOTAL PROTEIN 7.8 GM/DL (6.4-8.2)
[2019-03-18 05:47] VITALS: BP 117/83
== END 2019-03-18 05:49 | disposition home or self-care (01) ==
LOC: M ED 23:49
DX: F43.0 Acute stress reaction (principal); Z91.5 Personal history of self-harm; F32.9 Major depressive disorder, single episode, unspecified; Z79.899 Other long term (current) drug therapy
CPT/HCPCS: 80048; 80076; 80307; 84443; 84703; 85027; 99284; G0480